=== PATIENT | female | born 2000 | race African-American/Black ===

== ENCOUNTER 2024-07-01 12:19 | Emergency (ER) | payer OTHER ==
[~2024-07-01] VITALS: Ht 167.6 cm; Wt 77.0 kg
[2024-07-01 12:45] VITALS: PULSE 112; RESP 24; O2SAT 97
[2024-07-01 12:55] LABS: BASOPHILS % 0.7 % (0.0-2.0); EOSINOPHILS % 2.2 % (0.0-5.0); HEMATOCRIT. 34.2 % (36.0-48.0); HEMOGLOBIN. 11.2 g/dL (12.0-16.0); LYMPHOCYTES % 10.9 % (20.0-50.0); MEAN CORPUSCULAR HEMOGLOBIN 31.1 pg (28.0-32.0); MEAN CORPUSCULAR HGB CONC 32.9 g/dL (31.0-37.0); MEAN CORPUSCULAR VOLUME 94.4 fL (81.0-99.0); MONOCYTES % 12.5 % (2.0-8.0); NEUTROPHILS % 73.7 % (40.0-76.0); PLATELET 266 x1000/uL (130-400); RED BLOOD CELL COUNT 3.62 mill/uL (4.2-5.4); RED CELL DISTRIBUTION WIDTH 14.6 % (11.6-14.6); WHITE BLOOD COUNT 11.8 x1000/uL (4.5-11.0)
[2024-07-01] MEDS: ALBUTEROL (0.083%) 2.5MG/3ML NEB HHN ONE (12:58)
[2024-07-01 13:00] LABS: CHLORIDE 106 mEq/L (98-107); POTASSIUM 3.1 mEq/L (3.5-5.1); SODIUM 137 mEq/L (136-145)
[2024-07-01 13:01] LABS: CALCIUM 8.8 mg/dL (8.7-10.4); CARBON DIOXIDE 24 mEq/L (21-32)
[2024-07-01 13:06] LABS: CREATININE 0.5 mg/dL (0.6-1.0); GLUCOSE 103 mg/dL (70-105); UREA NITROGEN BLOOD 5 mg/dL (9-23)
[2024-07-01] MEDS: PREDNISONE 20MG TABLET PO ONE (13:06)
[2024-07-01 13:40] LABS: B-HCG QUANTITATIVE 34330 mIU/mL (<3)
[2024-07-01 14:49] VITALS: BP 106/61; PULSE 108; RESP 18; TEMP 37.05852; O2SAT 96
[2024-07-01] MEDS ORDERED: P50 MT (15:15)
[2024-07-01] MEDS ORDERED: ALBU18HF2 IH (15:15)
== END 2024-07-01 15:24 | disposition home or self-care (01) ==
LOC: ER 12:19
DX: O30.042 Twin pregnancy, dichorionic/diamniotic, second trimester (principal); O09.32 Supervision of pregnancy with insufficient antenatal care, second trimester; O99.512 Diseases of the respiratory system complicating pregnancy, second trimester; J45.901 Unspecified asthma with (acute) exacerbation; R10.2 Pelvic and perineal pain; Z3A.22 22 weeks gestation of pregnancy
CPT/HCPCS: 80048; 84702; 85025; 36415; 76805; 76810; 94640; 94070; 99284; J7512; Z7610 ×3